=== PATIENT | male | born 1975 | race African-American/Black ===

== ENCOUNTER 2017-07-17 12:25 | Emergency (ER) | payer OTHER ==
[2017-07-17 12:52] VITALS: BP 130/87; PULSE 74; TEMP 98.1; BMI 28.1
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
== END 2017-07-17 13:42 | disposition home or self-care (01) ==
LOC: JERFT 12:25
DX: M54.2 Cervicalgia (principal); V49.49XA Driver injured in collision with other motor vehicles in traffic accident, initial encounter; Y92.488 Other paved roadways as the place of occurrence of the external cause; Y93.89 Activity, other specified; Y99.8 Other external cause status
CPT/HCPCS: 99281-25

== ENCOUNTER 2023-06-04 03:41 | Emergency (ER) | payer OTHER ==
[2023-06-04 03:50] VITALS: BP 127/68; PULSE 91; RESP 18; TEMP 98.8; BMI 28.1
[2023-06-04] MEDS ORDERED: ALBUTEROL SO4 2.5/IPRATROPIUM 0.5 INH SOL 3 ML VIAL.NEB. NEB ONE ×2 (04:53→05:05)
[2023-06-04] MEDS ORDERED: ACETAMINOPHEN 325 MG TABLET (FP) PO ONE (04:54)
[2023-06-04] MEDS ORDERED: ACETAMINOPHEN 325 MG TABLET (FP) ONE (05:05)
[2023-06-04] MEDS ORDERED: ALBUTEROL SO4 HFA INHALER IH ONE ×2 (06:10)
== END 2023-06-04 06:24 | disposition home or self-care (01) ==
LOC: JER 03:41
PROC: 3E0F7GC Introduction of Other Therapeutic Substance into Respiratory Tract, Via Natural or Artificial Opening (ICD-10-PCS; principal; 2023-06-04)
PROC: 3E0F7GC Introduction of Other Therapeutic Substance into Respiratory Tract, Via Natural or Artificial Opening (ICD-10-PCS; 2023-06-04)
DX: R07.89 Other chest pain (principal); R05.9 Cough, unspecified; J10.1 Influenza due to other identified influenza virus with other respiratory manifestations; Z20.822 Contact with and (suspected) exposure to COVID-19
CPT/HCPCS: 0241U-QW; 71046-TC-FY; 82962; 93005; 93010; 94640; 99285-25

== ENCOUNTER 2023-07-06 00:15 | Emergency (ER) | payer OTHER ==
[2023-07-06 00:21] VITALS: BP 139/90; PULSE 78; RESP 18; TEMP 97.7; BMI 28.1
[2023-07-06] MEDS ORDERED: ACETAMINOPHEN 1000 MG/100 ML BAG IVPB ONE (02:33)
[2023-07-06] MEDS ORDERED: ACETAMINOPHEN INJECTION 100 ML IVPB ONE (02:40)
[2023-07-06 03:02] LABS: BASO % 0.7 % (0-2.0); EOS % 1.3 % (0-4.5); HEMATOCRIT 44.3 % (35.4-49); HEMOGLOBIN 14.4 GM/dL (11.7-16.9); LYMPH % 23.8 % (8-40); MCH 30.3 pg (25.7-33.7); MCHC 32.6 g/dl (32.0-35.9); MEAN CELL VOLUME 92.8 fl (80-96); MEAN PLT VOLUME 8.1 fl (7.5-11.1); MONO % 7.3 % (3.8-10.2); NEUT % 66.9 % (42.8-82.8); PLATELET COUNT 348 10^3/uL (134-434); RBC 4.77 M/mm3 (4.00-5.60); WHITE BLOOD COUNT 10.3 K/mm3 (4.0-10.0)
[2023-07-06 03:03] LABS: PH,URINE 5.5 (5.0-8.0); URINE APPEARANCE CLEAR; URINE BILIRUBIN NEGATIVE (NEGATIVE); URINE COLOR YELLOW; URINE GLUCOSE (UA) NEGATIVE (NEGATIVE); URINE KETONE NEGATIVE (NEGATIVE); URINE LEUK ESTERASE NEGATIVE (NEGATIVE); URINE NITRITE NEGATIVE (NEGATIVE); URINE PROTEIN NEGATIVE (NEGATIVE); URINE UROBILINOGEN 0.2 mg/dL (0.2-1.0)
[2023-07-06 03:19] LABS: POTASSIUM 4.4 mmol/L (3.5-5.1)
[2023-07-06 03:20] LABS: CALCIUM 9.3 mg/dL (8.5-10.1)
[2023-07-06 03:21] LABS: ALBUMIN 3.7 g/dl (3.4-5.0); BLOOD UREA NITROGEN 10.8 mg/dL (7-18); MAGNESIUM 2.3 mg/dL (1.8-2.4)
[2023-07-06 03:24] LABS: CREATININE 0.9 mg/dL (0.55-1.3)
[2023-07-06 03:26] LABS: TOT PROT 7.5 g/dl (6.4-8.2)
[2023-07-06 04:06] LABS: BILIRUBIN,TOTAL 0.4 mg/dL (0.2-1)
== END 2023-07-06 05:28 | disposition left against medical advice (07) ==
LOC: JER 00:15
DX: R10.32 Left lower quadrant pain (principal); R30.9 Painful micturition, unspecified; Z20.822 Contact with and (suspected) exposure to COVID-19
CPT/HCPCS: 0241U-QW; 36415; 74177-TC; 80053; 81003; 83605; 83690; 83735; 85025; 87086; 99285-25; Q9967

== ENCOUNTER 2024-10-21 20:05 | Emergency (ER) | payer OTHER ==
[2024-10-21 20:15] VITALS: BP 132/97; PULSE 81; RESP 18; TEMP 99.3; BMI 29.0
[2024-10-21] MEDS ORDERED: ACETAMINOPHEN INJECTION 100 ML ONE (21:04)
[2024-10-21] MEDS: LACTATED RINGERS SOLUTION 1,000 ML/1,000 ML INFUS.BAG IV SCH (21:23)
[2024-10-21] MEDS: ACETAMINOPHEN 1000 MG/100 ML BAG IVPB ONE (21:23)
[2024-10-21 21:30] LABS: ABSOLUTE IMMATURE GRANULOCYTES 0.03 x10^3/uL (0.0-0.031); BASOPHILS # 0.05 x10^3/uL (0.01-0.08); EOSINOPHIL % 0.8 % (0.8-7.0); HEMATOCRIT 43.4 % (40.1-51.0); HEMOGLOBIN 14.1 g/dL (13.7-17.5); MCHC 32.5 g/dl (32.3-36.5); MEAN CELL VOLUME 91.6 fl (79.0-92.2); MEAN PLT VOLUME 10.2 fl (9.4-12.4); MONOCYTE % 10.7 % (5.3-12.2); PLATELET COUNT 253 x10^3/uL (163-337); RDW 12.4 % (12.1-15.9)
[2024-10-21 21:38] LABS: INR 1.1 (0.83-1.09); PROTHROMBIN TIME (PATIENT) 12.1 SEC (9.7-13.0)
[2024-10-21 21:41] LABS: ACTIVATED PTT 31.8 SECONDS (25.2-36.5)
[2024-10-21] MEDS ORDERED: morphine SULFATE 4 MG/ML VIAL ONE (21:49)
[2024-10-21 21:53] LABS: PH,URINE 7.5 (5.0-8.0); URINE APPEARANCE CLOUDY; URINE BILIRUBIN NEGATIVE (NEGATIVE); URINE COLOR YELLOW; URINE GLUCOSE (UA) NEGATIVE (NEGATIVE); URINE KETONE NEGATIVE (NEGATIVE); URINE LEUK ESTERASE NEGATIVE (NEGATIVE); URINE NITRITE NEGATIVE (NEGATIVE); URINE PROTEIN NEGATIVE (NEGATIVE)
[2024-10-21] MEDS: morphine CARPU-JECT 4 MG/1 ML DISP.SYRIN IVPUSH ONE (21:55)
[2024-10-21 22:24] LABS: ALBUMIN 3.7 g/dl (3.4-5.0); CALCIUM 9.3 mg/dL (8.5-10.1); MAGNESIUM 1.9 mg/dL (1.8-2.4)
[2024-10-21 22:28] LABS: CREATININE 0.9 mg/dL (0.55-1.3)
[2024-10-21 22:30] LABS: BILIRUBIN,TOTAL 0.6 mg/dL (0.2-1); TOT PROT 6.8 g/dl (6.4-8.2)
[2024-10-21 23:39] LABS: HCV DIAGNOSTIC IN-HOUSE W/RFLX NON-REACTIVE (NONREACTIVE)
[2024-10-21 23:40] LABS: HIV INTERPRETATION NEGATIVE (NEGATIVE)
[2024-10-21] MEDS: AMOX TR/POT CLAV 875MG/125MG TABLETS (FP) PO ONE (23:50)
[2024-10-21] MEDS ORDERED: AMOX TR/POT CLAV 875MG/125MG TABLETS (FP) ONE (23:50)
== END 2024-10-22 00:03 | disposition home or self-care (01) ==
LOC: JER 20:05
PROC: 3E033NZ Introduction of Analgesics, Hypnotics, Sedatives into Peripheral Vein, Percutaneous Approach (ICD-10-PCS; principal; 2024-10-21)
PROC: 3E033NZ Introduction of Analgesics, Hypnotics, Sedatives into Peripheral Vein, Percutaneous Approach (ICD-10-PCS; 2024-10-21)
DX: K57.32 Diverticulitis of large intestine without perforation or abscess without bleeding (principal); R10.32 Left lower quadrant pain; R19.7 Diarrhea, unspecified; K92.1 Melena; R68.83 Chills (without fever)
CPT/HCPCS: 36415; 74177-TC; 80053; 81003; 83690; 83735; 85025; 85610; 85730; 86803; 86850; 86900; 86901; 87086; 87389; 99285-25; J0131; Q9967